=== PATIENT | male | born 1985 | race Caucasian/White ===

== ENCOUNTER 2017-11-05 12:23 | Emergency (ER) | payer MEDICAID | END 2017-11-05 13:13 | disposition home or self-care (01) | LOC: FTE 12:23 | DX: L60.0 Ingrowing nail (principal) | CPT/HCPCS: 99283; Z7502 ==

== ENCOUNTER 2017-12-05 10:33 | Emergency (ER) | payer MEDICAID | END 2017-12-05 11:43 | disposition home or self-care (01) | LOC: FTE 10:33 | DX: L60.0 Ingrowing nail (principal) | CPT/HCPCS: 99284; Z7502 ==

== ENCOUNTER 2017-12-09 03:17 | Emergency (ER) | payer MEDICAID | END 2017-12-09 05:13 | disposition left against medical advice (07) | LOC: FTE 03:17 | DX: L27.0 Generalized skin eruption due to drugs and medicaments taken internally (principal) | CPT/HCPCS: 99282; Z7502 ==

== ENCOUNTER 2018-04-14 09:27 | Emergency (ER) | payer MEDICAID | END 2018-04-14 10:20 | disposition home or self-care (01) | LOC: FTE 09:27 | DX: J02.9 Acute pharyngitis, unspecified (principal) | CPT/HCPCS: 99282; Z7502 ==

== ENCOUNTER 2018-06-17 15:26 | Emergency (ER) | payer MEDICAID ==
[2018-06-17] MEDS: ACETAMINOPHEN 500 MG TAB PO (17:10)
[2018-06-17] MEDS: IBUPROFEN 600 MG TAB PO (17:10)
[2018-06-17 17:16] LABS: ADD MAN DIFF? NO
[2018-06-17 17:17] LABS: URINE BLOOD (Dip) POC Negative (NEGATIVE); URINE GLUCOSE (Dip) POC Negative (NEGATIVE); URINE KETONES (Dip) POC Negative (NEGATIVE); URINE LEUKOCYTE EST (Dip) POC Negative (NEGATIVE); URINE NITRITE (Dip) POC Negative (NEGATIVE); URINE TOTAL PROTEIN POC Negative (NEGATIVE)
[2018-06-17 17:18] LABS: BASOPHIL # 0.1 10^3/ul (0.0-0.1); BASOPHILS % 0.8 % (0.0-2.0); EOSINOPHILS # 0.2 10^3/ul (0.0-0.5); EOSINOPHILS % 1.9 % (0.0-7.0); HEMATOCRIT 45.3 % (42.0-52.0); LYMPHOCYTES # 2.5 10^3/ul (0.8-2.9); LYMPHOCYTES % 32.2 % (15.0-51.0); MEAN CORPUSCULAR HEMOGLOBIN 29.4 pg (29.0-33.0); MEAN CORPUSCULAR HGB CONC 33.1 g/dl (32.0-37.0); MEAN CORPUSCULAR VOLUME 88.6 fl (82.0-101.0); MEAN PLATELET VOLUME 10.8 fl (7.4-10.4); MONOCYTE # 0.6 10^3/ul (0.3-0.9); MONOCYTES % 7.1 % (0.0-11.0); NEUTROPHIL # 4.5 10^3/ul (1.6-7.5); NEUTROPHILS % 57.9 % (39.0-77.0); PLATELET COUNT 259 10^3/UL (140-415); RED BLOOD COUNT 5.11 10^6/ul (4.70-6.10); RED CELL DISTRIBUTION WIDTH 13.1 % (11.5-14.5)
[2018-06-17 17:18] LABS: WHITE BLOOD COUNT 7.7 10^3/ul (4.8-10.8)
[2018-06-17 17:40] LABS: ANION GAP 9 (5-13); BLOOD UREA NITROGEN 19 mg/dl (7-20); CALCIUM 9.7 mg/dl (8.4-10.2); CARBON DIOXIDE 28 mmol/L (21-31); CHLORIDE 103 mmol/L (97-110); CREATININE 0.83 mg/dl (0.61-1.24); Estimated GFR > 60 mL/min (>60); GLUCOSE 105 mg/dl (70-220); POTASSIUM 4.2 mmol/L (3.5-5.1); SODIUM 140 mmol/L (135-144)
== END 2018-06-17 19:01 | disposition home or self-care (01) ==
LOC: FTE 15:26
DX: S39.011A Strain of muscle, fascia and tendon of abdomen, initial encounter (principal); X58.XXXA Exposure to other specified factors, initial encounter; Y92.9 Unspecified place or not applicable
CPT/HCPCS: 36415; 74176; 80048; 81003; 85025; 99284-25

== ENCOUNTER 2018-10-11 19:28 | Emergency (ER) | payer MEDICAID ==
[2018-10-11] MEDS: KETOROLAC 60 MG INJ IM (21:02)
== END 2018-10-11 22:43 | disposition home or self-care (01) ==
LOC: FTE 19:28
DX: R51 Headache (principal)
CPT/HCPCS: 70450; 82962; 96372; 99285-25

== ENCOUNTER 2018-10-20 02:00 | Emergency (ER) | payer SELFPAY, MEDICAID | END 2018-10-20 03:20 | disposition home or self-care (01) | LOC: FTE 02:00 | DX: R05 Cough (principal) | CPT/HCPCS: 99283 ==

== ENCOUNTER 2018-12-14 20:16 | Emergency (ER) | payer SELFPAY | END 2018-12-14 20:30 | disposition left against medical advice (07) | LOC: FTE 20:30 | DX: Z53.21 Procedure and treatment not carried out due to patient leaving prior to being seen by health care provider (principal) ==